=== PATIENT | female | born 1975 | race Asian ===

== ENCOUNTER 2019-02-02 22:40 | Emergency (ER) | payer OTHER ==
[~2019-02-02] VITALS: Ht 152.4 cm; Wt 60.0 kg
[2019-02-03 01:02] LABS: AMPHET/METH SCREEN,URINE NEGATIVE (NEGATIVE); BARBITURATE SCREEN, URINE NEGATIVE (NEGATIVE); BENZODIAZEPINES SCREEN,URINE NEGATIVE (NEGATIVE); CANNABINOID SCREEN,URINE NEGATIVE (NEGATIVE); COCAINE SCREEN,URINE NEGATIVE (NEGATIVE); METHADONE SCREEN, URINE NEGATIVE (NEGATIVE); OPIATE SCREEN,URINE NEGATIVE (NEGATIVE); PHENCYCLIDINE SCREEN,URINE NEGATIVE (NEGATIVE)
[2019-02-03 01:50] VITALS: BP 121/75
== END 2019-02-03 02:17 | disposition home or self-care (01) ==
LOC: EMS 22:41
DX: F10.129 Alcohol abuse with intoxication, unspecified (principal); R41.82 Altered mental status, unspecified; I10 Essential (primary) hypertension; Y90.4 Blood alcohol level of 80-99 mg/100 ml
CPT/HCPCS: 36415; 80307; 84703; 99283; G0480